=== PATIENT | female | born 1955 | race Caucasian/White ===

== ENCOUNTER 2019-01-11 11:58 | Emergency (ER) | payer OTHER ==
[~2019-01-11] VITALS: Ht 167.6 cm; Wt 90.7 kg
[2019-01-11] MEDS ORDERED: IBUPROFEN 600600 M1 PO (12:50)
[2019-01-11] MEDS ORDERED: ULTRAM 50MG TAB50 MG PO (12:50)
[2019-01-11] MEDS ORDERED: NORFLEX100 MG PO (12:50)
[2019-01-11 13:56] VITALS: BP 129/85
--- NOTE | 2019-01-12 17:57 | EKG ---
[address] [address] ELECTROCARDIOGRAM REPORT Name: NASEEM MERCER Room #: [facility]#: [id number] ������������������ Admission: 01/11/19 ������������������ Attend Phys: Discharge: 01/11/19 ������������������ Date of : 57 Report #: [id number] ����������������������������������������������������������������� [id number] THIS REPORT FOR: //name// [facility] ED Test Date: 2019-01-11 Test Time: 12:37:55 Pat Name: NASEEM MERCER Department: Room: Gender: F [employer]estock [employer]: ANDREA : 1955 Requested By: Dwayne Ross Order Number: [id number] MD: Rudi Phillips Measurements Intervals [place] Rate: 69 P: 55 NM: 168 QRS: -20 QRSD: 85 T: 25 QT: 404 QTc: 433 Interpretive Statements Sinus rhythm Probable left atrial enlargement Borderline left axis deviation Borderline low voltage, extremity leads Baseline wander in lead(s) V4 No previous ECG available for comparison Electronically Signed On 01-12-2019 17:57:37 CDT by Rudi Phillips [email or web address] ��������������������������������������������� <ELECTRONICALLY SIGNED> ���������������������������������������� By: Rudi Phillips MD ��������������������������������������������� 01/12/19 1757 1237 1237 Rudi Phillips MD /EPI
== END 2019-01-11 13:56 | disposition home or self-care (01) ==
LOC: ER 11:58
DX: S20.219A Contusion of unspecified front wall of thorax, initial encounter (principal); S80.12XA Contusion of left lower leg, initial encounter; V89.2XXA Person injured in unspecified motor-vehicle accident, traffic, initial encounter; Y93.89 Activity, other specified; Y92.410 Unspecified street and highway as the place of occurrence of the external cause; Y99.8 Other external cause status